=== PATIENT | male | born 1960 | race Caucasian/White ===

== ENCOUNTER 2017-03-13 10:27 | Emergency (ER) | payer OTHER ==
[2017-03-13 10:40] VITALS: BMI 29.5
[2017-03-13 10:47] VITALS: RESP 18; TEMP 97.6
[2017-03-13] MEDS ORDERED: Sodium Chloride 0.9% 1,000 ML IV ONE (11:55)
--- NOTE | 2017-03-13 11:58 | C.PDOC ---
History Of Present Illness 56 year old male presents to the ED for evaluation of right lower quadrant abdominal pain which began yesterday. Patient states his symptoms are constant and waxing/waning in intensity. He denies any associated symptoms including fever, chills, nausea, vomiting, diarrhea, dysuria, hematuria. Time Seen by Provider: 03/13/17 11:28 Chief Complaint (Nursing): Abdominal Pain History Per: Patient History/Exam Limitations: no limitations Onset/Duration Of Symptoms: Hrs, Waxing/Waning Current Symptoms Are (Timing): Still Present Location Of Pain/Discomfort: RLQ Quality Of Discomfort: "Pain" Associated Symptoms: denies: Fever, Chills, Nausea, Vomiting, Diarrhea, Urinary Symptoms Additional History Per: Patient Past Medical History Reviewed: Historical Data, Nursing Documentation, Vital Signs Vital Signs: Last Vital Signs Temp 97.6 F 03/13/17 10:42 Pulse 62 03/13/17 13:13 Resp 18 03/13/17 13:13 BP 111/72 03/13/17 13:13 Pulse Ox 97 03/13/17 15:00 - Medical History PMH: No Chronic Diseases Surgical History: No Surg Hx Family History: States: Unknown Family Hx - Social History Hx Alcohol Use: No Hx Substance Use: No - Immunization History Hx Tetanus Toxoid Vaccination: Yes (2016) Hx Influenza Vaccination: No Hx Pneumococcal Vaccination: No Review Of Systems Constitutional: Negative for: Fever, Chills Gastrointestinal: Positive for: Abdominal Pain (right lower quadrant ). Negative for: Nausea, Vomiting, Diarrhea Genitourinary: Negative for: Dysuria, Hematuria Physical Exam - Physical Exam Appears: Non-toxic, Other (in mild pain ) Skin: Normal Color, Warm, Dry Oral Mucosa: Moist Neck: Supple Chest: Symmetrical, No Deformity, No Tenderness Cardiovascular: Rhythm Regular, No Murmur Respiratory: Normal Breath Sounds, No Rales, No Rhonchi, No Wheezing Gastrointestinal/Abdominal: Soft, Tenderness (to right lower quadrant on palpation ), No Guarding, No Rebound, Other (positive Rovsig's sign) Extremity: Normal ROM, Capillary Refill (less than 2 seconds ) Neurological/Psych: Oriented x3, Normal Speech, Normal Cognition Gait: Steady ED Course And Treatment - Laboratory Results Result Diagrams: 03/13/17 12:13 03/13/17 12:13 O2 Sat by Pulse Oximetry: 97 (on RA) Pulse Ox Interpretation: Normal - CT Scan/US CT ABD/PELVIS Other Rad Studies (CT/US): Read By Radiologist, Radiology Report Reviewed CT/US Interpretation: Accession No. : [id number]. Patient Name / ID : ANUSHA GONZALEZ / [id number]. Exam Date : 03/13/2017 14:25:26 ( Approved ). Study Comment : Sex / Age : M / 56Y. Creator : Vahid Alva MD. Dictator : Vahid Alva MD. Bicycle Mechanic : Community Resource Consultant : Vahid Alva MD. Approver2 : Report Date : 03/13/2017 14:40:28. My Comment : . PROCEDURE: CT Abdomen and Pelvis with contrast. HISTORY: RLQ PAIN, R/O APPENDICITIS. COMPARISON: None. TECHNIQUE: Contrast dose: 100 mL Visipaque 320. Radiation dose: Total exam DLP = 474.8 mGy-cm. This CT exam was performed using one or more of the following dose reduction techniques: Automated exposure control, adjustment of the mA and/or kV according to patient size, and/or use of iterative reconstruction technique. FINDINGS: LOWER THORAX : Unremarkable. LIVER: Steatosis. No gross lesion or ductal dilatation. GALLBLADDER AND BILE DUCTS: Unremarkable. PANCREAS: Unremarkable. No gross lesion or ductal dilatation. SPLEEN: Unremarkable main spleen and small splenules. ADRENALS: Unremarkable. No mass. KIDNEYS AND URETERS: Unremarkable. No hydronephrosis. No solid mass. VASCULATURE: Unremarkable. No aortic aneurysm. BOWEL: Colonic diverticulosis without diverticulitis. No obstruction. No gross mural thickening. APPENDIX: Normal appendix. PERITONEUM : Small bilateral fat containing inguinal hernias. No free fluid. No free air. LYMPH NODES: Unremarkable. No enlarged lymph nodes. BLADDER: Unremarkable. REPRODUCTIVE: Coarse prostatic calcifications. BONES: Mild degenerative changes. OTHER FINDINGS: None. IMPRESSION: No acute abdominal pelvic pathology. Progress Note: Bloodwork, labs, CT A/P, and UA ordered and reviewed. IV Fluids administered. Disposition Counseled Patient/Family Regarding: Studies Performed, Diagnosis, Need For Followup, Rx Given - Disposition Referrals: [facility] [Outside] Disposition: HOME/ ROUTINE Disposition Time: 15:00 Condition: STABLE Additional Instructions: FOLLOW UP WITH YOUR DOCTOR/CLINIC IN 1-2 DAYS USE MEDICATION NEEDED DRINK PLENTY OF FLUIDS RETURN TO EMERGENCY ROOM IF SYMPTOMS WORSEN SEGUIMIENTO CON MCINTYRE MDICO / CLNICA EN 1-2 SHARP USE MEDICAMENTOS SEGN SEA NECESARIO BEBER MUCHO LQUIDO REGRESE AL JOVANNI DE EMERGENCIA SI LOS SNTOMAS EMPEORAN Prescriptions: Naproxen [Naprosyn] 1 tab PO BID PRN #25 tab PRN Reason: Pain Instructions: Acute Abdominal Pain (ED) Forms: [facility] [employer] (Tuvaluan) Print Language: HUNGARIAN - POA Present On Arrival: None - Clinical Impression Clinical Impression: Abdominal pain - Scribe Statement The provider has reviewed the documentation as recorded by the Scribe (Ally Robert) Provider Attestation: All medical record entries made by the Scribe were at my direction and personally dictated by me. I have reviewed the chart and agree that the record accurately reflects my personal performance of the history, physical exam, medical decision making, and the department course for this patient. I have also personally directed, reviewed, and agree with the discharge instructions and disposition.
[2017-03-13 12:27] LABS: BASO # 0.1 K/uL (0.0-0.2); EOS # 0.1 K/uL (0.0-0.7); EOS % 2.3 % (0.0-4.0); HEMATOCRIT 41.7 % (35.0-51.0); INR 1.1; LYMPH # 1.8 K/uL (1.0-4.3); LYMPH % 33.3 % (20.0-40.0); MEAN CELL VOLUME 90.8 fL (80.0-94.0); MEAN CORPUSCULAR HEMOGLOBIN 32.1 pg (27.0-31.0); MEAN CORPUSCULAR HGB CONC 35.3 g/dL (33.0-37.0); MEAN PLATELET VOLUME 6.9 fL (7.2-11.7); MONO # 0.5 K/uL (0.0-0.8); MONO % 8.4 % (0.0-10.0); NRBC % 0.1 % (0.0-2.0); RED CELL DISTRIBUTION WIDTH 13.2 % (11.5-14.5); WHITE BLOOD COUNT 5.5 K/uL (4.8-10.8)
[2017-03-13 12:36] LABS: ALB/GLOB RATIO 1.1 (1.0-2.1); ALKALINE PHOSPHATASE 64 U/L (38-126); ALT/SGPT 69 U/L (21-72); AST/SGOT 35 U/L (17-59); BLOOD UREA NITROGEN 14 mg/dL (9-20); CALCIUM 8.6 mg/dl (8.6-10.4); CARBON DIOXIDE 26 mmol/L (22-30); CHLORIDE 103 mmol/L (98-107); GFR AFRICAN-AMERICAN > 60; GLUCOSE,RANDOM 80 mg/dL (75-110); POTASSIUM 3.5 mmol/L (3.6-5.2); SODIUM 134 mmol/L (132-148); TOTAL PROTEIN 8.2 g/dL (6.3-8.3)
[2017-03-13 12:48] LABS: URINE BILIRUBIN NEGATIVE (NEGATIVE); URINE BLOOD NEGATIVE (NEGATIVE); URINE COLOR Yellow (YELLOW); URINE GLUCOSE (UA) NORMAL (Normal); URINE KETONE NEGATIVE (NEGATIVE); URINE LEUKOCYTE ESTERASE NEG Leu/uL (Negative); URINE PROTEIN NEGATIVE (NEGATIVE); URINE UROBILINOGEN NORMAL mg/dL (0.2-1.0)
[2017-03-13 13:03] LABS: RBC URINE 1 /hpf (0-3)
[2017-03-13 13:04] LABS: WBC URINE 4 /hpf (0-5)
[2017-03-13 13:13] VITALS: BP 111/72; PULSE 62
[2017-03-13] MEDS ORDERED: Iodixanol 320 MG/ML 100 ML BOTTLE IV ONE (13:27)
[2017-03-13 14:08] VITALS: O2SAT 97
--- NOTE | 2017-03-13 14:42 | CT ---
PROCEDURE: CT Abdomen and Pelvis with contrast HISTORY: RLQ PAIN, R/O APPENDICITIS COMPARISON: None. TECHNIQUE: Contrast dose: 100 mL Visipaque 320 Radiation dose: Total exam DLP = 474.8 mGy-cm. This CT exam was performed using one or more of the following dose reduction techniques: Automated exposure control, adjustment of the mA and/or kV according to patient size, and/or use of iterative reconstruction technique. FINDINGS: LOWER THORAX: Unremarkable. LIVER: Steatosis. No gross lesion or ductal dilatation. GALLBLADDER AND BILE DUCTS: Unremarkable. PANCREAS: Unremarkable. No gross lesion or ductal dilatation. SPLEEN: Unremarkable main spleen and small splenules. ADRENALS: Unremarkable. No mass. KIDNEYS AND URETERS: Unremarkable. No hydronephrosis. No solid mass. VASCULATURE: Unremarkable. No aortic aneurysm. BOWEL: Colonic diverticulosis without diverticulitis. No obstruction. No gross mural thickening. APPENDIX: Normal appendix. PERITONEUM: Small bilateral fat containing inguinal hernias. No free fluid. No free air. LYMPH NODES: Unremarkable. No enlarged lymph nodes. BLADDER: Unremarkable. REPRODUCTIVE: Coarse prostatic calcifications. BONES: Mild degenerative changes. OTHER FINDINGS: None. IMPRESSION: No acute abdominal pelvic pathology.
== END 2017-03-13 15:11 | disposition home or self-care (01) ==
LOC: C.ER 10:27
DX: R10.31 Right lower quadrant pain (principal)
CPT/HCPCS: 74177; 80053; 81001; 83690; 85025; 85610; 85730; 86850; 86900; 99284; Q9967

== ENCOUNTER 2018-09-04 07:53 | Emergency (ER) | payer OTHER | END 2018-09-04 09:37 | disposition home or self-care (01) | LOC: C.ER 07:53 ==